=== PATIENT | female | born 1965 | race African-American/Black ===

== ENCOUNTER 2018-08-18 06:01 | Day surgery (SDC) | payer BC ==
[2018-08-18] MEDS ORDERED: MIDAZOLAM 1 MG/ML 2 ML INJ ×2 (08:23)
[2018-08-18] MEDS ORDERED: FENTAnyl 50 MCG/ML VIAL (08:23)
== END 2018-08-18 10:27 | disposition home or self-care (01) ==
LOC: GIL 06:01
DX: Z12.11 Encounter for screening for malignant neoplasm of colon (principal); D12.5 Benign neoplasm of sigmoid colon; K64.8 Other hemorrhoids
CPT/HCPCS: 45380; 88305